=== PATIENT | male | born 1950 | race Hispanic/Latino ===

== ENCOUNTER 2018-06-15 10:45 | Observation (INO) | payer MEDICARE ==
[2018-06-15] MEDS ORDERED: Tdap Vaccine 0.5 ml Vial (10-64 yrs) IM ONE ×2 (11:28→11:45)
[2018-06-15] MEDS ORDERED: Lidocaine 1% Inj (20ml) IM STA (11:29)
[2018-06-15] MEDS ORDERED: Lidocaine Hydrochloride 1% 10 ML ONE (11:46)
[2018-06-15 11:53] LABS: INR 1.1; PROTHROMBIN TIME 12.2 Seconds (9.8-13.1)
[2018-06-15 11:54] LABS: HEMOGLOBIN 14.8 g/dL (12.0-18.0); MEAN CELL VOLUME 96.5 fl (80.0-94.0); MEAN CORPUSCULAR HEMOGLOBIN 33.3 pg (27.0-31.0); MEAN CORPUSCULAR HGB CONC 34.5 g/dL (33.0-37.0); RBC 4.44 Mil/uL (4.40-5.90); RED CELL DISTRIBUTION WIDTH 12.7 % (11.5-14.5); WHITE BLOOD COUNT 5.3 K/uL (4.8-10.8)
[2018-06-15 11:56] LABS: PARTIAL THROMBOPLASTIN TIME 28.5 Seconds (25.6-37.1)
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
[2018-06-15 12:05] LABS: BLOOD UREA NITROGEN 17 mg/dl (9-20); CALCIUM 8.9 mg/dL (8.4-10.2); GFR NON-AFRICAN AMERICAN > 60
--- NOTE | 2018-06-15 12:09 | CT ---
Date of service: 06/15/2018 PROCEDURE: CT HEAD WITHOUT CONTRAST. HISTORY: head injury COMPARISON: None available. TECHNIQUE: Axial computed tomography images were obtained through the head/brain without intravenous contrast. Radiation dose: Total exam DLP = 920.55 mGy-cm. This CT exam was performed using one or more of the following dose reduction techniques: Automated exposure control, adjustment of the mA and/or kV according to patient size, and/or use of iterative reconstruction technique. FINDINGS: HEMORRHAGE: No intracranial hemorrhage. BRAIN: Ro-white matter differentiation is preserved. There is no mass, mass effect or abnormal extra-axial fluid collection. There is no territorial infarction. The midline sagittal structures are normal. VENTRICLES: The ventricles are normal in size, shape and configuration. CALVARIUM: There is no calvarial fracture. There is a moderate sized left frontal scalp hematoma. PARANASAL SINUSES: Predominantly clear. MASTOID AIR CELLS: Predominantly clear. OTHER FINDINGS: None. IMPRESSION: No acute intracranial abnormality. Moderate size left frontal scalp hematoma.
--- NOTE | 2018-06-15 12:50 | CT ---
Date of service: 06/15/2018 PROCEDURE: CT Cervical Spine without contrast HISTORY: Fall, head injury COMPARISON: None available. TECHNIQUE: Axial computed tomography images were obtained of the cervical spine without the use of intravenous contrast. Coronal and sagittal reformatted images were created and reviewed. Radiation dose: Total exam DLP = 337.73 mGy-cm. This CT exam was performed using one or more of the following dose reduction techniques: Automated exposure control, adjustment of the mA and/or kV according to patient size, and/or use of iterative reconstruction technique. FINDINGS: VERTEBRAE: There is normal alignment of the cervical vertebral bodies. There is straightening of the cervical spine with loss of normal cervical lordosis. Vertebral height is normal. Bone mineralization is normal. There is no acute fracture or traumatic anterior listhesis. The craniocervical junction is normal. The atlantoaxial joint normal. DISCS/SPINAL CANAL/NEURAL FORAMINA: There is multilevel degenerative disc disease due to combination of disc osteophyte complexes, uncovertebral joint hypertrophy and multilevel facet arthropathy, worse at C5-6 with severe spinal canal stenosis and severe bilateral neural foraminal narrowing. PARASPINAL SOFT TISSUES: Paraspinous soft tissues are normal. No prevertebral soft tissue thickening. OTHER FINDINGS: No apical pneumothorax. IMPRESSION: 1. No acute fracture or traumatic anterior listhesis. 2. Straightening of the cervical spine may be positional or related to muscle spasm. 3. Multilevel degenerative disc disease, worse at C5-6 with severe spinal canal stenosis and severe bilateral neural foraminal narrowing.
[2018-06-15] MEDS ORDERED: Lidocaine 1% (10 ml) Inj INJ STA (13:05)
[2018-06-15] MEDS ORDERED: Lidocaine 1% w Epi 1:100,000 Inj ONE (14:25)
[2018-06-15] MEDS ORDERED: Lidocaine/Epi 1% 1:100000 20 ML IJ ONE (14:49)
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
--- NOTE | 2018-06-15 17:09 | CARD ---
APPROVED REPORT Date of service: 06/15/2018 EKG Measurement Heart [id number] <Conclusion> Sinus bradycardia Possible Inferior infarct, age undetermined Abnormal ECG
[2018-06-16 08:58] VITALS: BP 108/58
[2018-06-16] MEDS ORDERED: Metoprolol Succinate 25 mg XL Tab PO SCH (09:00)
[2018-06-16 09:35] VITALS: PULSE 57; RESP 20; TEMP 97.3
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
[2018-06-18 17:05] VITALS: O2SAT 98
== END 2018-06-16 12:50 | disposition home or self-care (01) ==
LOC: H.ER 10:45 → H.ERHOLD 15:01 → H.TEL 18:48
PROVIDERS: ADMIT Internal Medicine Pulmonary Disease; ATTEND Internal Medicine Pulmonary Disease
DX: S06.339A Contusion and laceration of cerebrum, unspecified, with loss of consciousness of unspecified duration, initial encounter (principal); W17.89XA Other fall from one level to another, initial encounter; W22.09XA Striking against other stationary object, initial encounter; S01.01XA Laceration without foreign body of scalp, initial encounter; Z79.02 Long term (current) use of antithrombotics/antiplatelets; Z95.5 Presence of coronary angioplasty implant and graft; Y93.55 Activity, bike riding; Z79.899 Other long term (current) drug therapy; E78.5 Hyperlipidemia, unspecified; I10 Essential (primary) hypertension; I25.10 Atherosclerotic heart disease of native coronary artery without angina pectoris; I25.2 Old myocardial infarction; M48.02 Spinal stenosis, cervical region; N40.0 Benign prostatic hyperplasia without lower urinary tract symptoms; Z23 Encounter for immunization
CPT/HCPCS: 12002; 70450; 72125; 80048; 85027; 85610; 85730; 90471; 90715; 93005; 99285; G0378